=== PATIENT | female | born 2005 | race Caucasian/White ===

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

== ENCOUNTER 2023-05-21 15:01 | Emergency (ER) | payer OTHER ==
[2023-05-21 15:12] VITALS: BP 145/79; PULSE 91
[2023-05-21] MEDS ORDERED: Ketorolac 30 MG/ML SDV IM ONE (15:20)
[2023-05-21] MEDS ORDERED: HYDROmorphone 1 MG/ML Syringe SUBCUT ONE (15:20)
== END 2023-05-21 16:14 | disposition home or self-care (01) ==
LOC: VM.ED 15:01
DX: G89.18 Other acute postprocedural pain (principal); M54.50 Low back pain, unspecified
CPT/HCPCS: 96372; 99283; J1170

== ENCOUNTER 2023-07-01 21:24 | Emergency (ER) | payer OTHER, BC ==
[2023-07-01] MEDS: Dexamethasone 4 MG/ML SDV IM ONE (21:54)
[2023-07-01] MEDS: Ketorolac 30 MG/ML SDV IM ONE (21:55)
[2023-07-01] MEDS: Cyclobenzaprine 10 MG Tab PO ONE (22:07)
[2023-07-01 22:11] VITALS: PULSE 118
[2023-07-01 22:19] VITALS: BP 149/89
== END 2023-07-01 22:30 | disposition home or self-care (01) ==
LOC: VM.ED 21:24
DX: M54.50 Low back pain, unspecified (principal); M62.830 Muscle spasm of back; R51.9 Headache, unspecified; E03.9 Hypothyroidism, unspecified; Z88.0 Allergy status to penicillin; Z79.899 Other long term (current) drug therapy; V49.10XA Passenger injured in collision with unspecified motor vehicles in nontraffic accident, initial encounter; Y92.410 Unspecified street and highway as the place of occurrence of the external cause
CPT/HCPCS: 96372; 99283; A9270-GY; J1100; J1885

== ENCOUNTER 2023-10-05 20:50 | Emergency (ER) | payer OTHER, BC ==
[2023-10-05] MEDS ORDERED: Sodium Chloride 0.9% 10 ML Syringe FLUSH PRN (21:06)
[2023-10-05 21:17] LABS: EOSINOPHILS PERCENT AUTO 0.2 % (0.0-4.0); HEMATOCRIT 41.8 % (33.0-47.0); HEMOGLOBIN 14.2 g/dL (12.0-16.0); LYMPHOCYTES ABSOLUTE AUTO 1.1 x10^3/uL (1.0-4.8); LYMPHOCYTES PERCENT AUTO 20.9 % (25.0-50.0); MEAN CORPUSCULAR HEMOGLOBIN 30.3 pg (26.0-32.0); MEAN CORPUSCULAR VOLUME 89.3 fL (78.0-93.0); MONOCYTES ABSOLUTE AUTO 0.6 x10^3/uL (0.0-0.8); MONOCYTES PERCENT AUTO 12.1 % (2.0-11.0); NEUTROPHILS ABSOLUTE AUTO 3.5 x10^3/uL (1.8-7.7); NEUTROPHILS PERCENT AUTO 66.8 % (50.0-80.0); PLATELET COUNT,PLT 227 x10^3/uL (130-400); RED BLOOD CELL COUNT 4.68 x10^6/uL (4.00-5.50); WHITE BLOOD CELL COUNT,WBC 5.2 x10^3/uL (4.0-10.0)
[2023-10-05] MEDS: Lactated Ringers 1,000 ML IV ONE (21:18)
[2023-10-05] MEDS: Ondansetron 4 MG/2 ML SDV IVPUSH ONE (21:18)
[2023-10-05 21:33] LABS: A/G RATIO 1.19; ALANINE AMINOTRANSFERASE,ALT 39 U/L (14-59); ALBUMIN 3.8 g/dL (3.4-5.0); ALKALINE PHOSPHATASE 69 U/L (46-116); AMYLASE 41 U/L (25-115); ASPARTATE AMNIOTRANSFERASE,AST 21 U/L (15-37); BILIRUBIN TOTAL 0.4 mg/dL (0.2-1.0); BLOOD UREA NITROGEN,BUN 9 mg/dL (7-18); C-REACTIVE PROTEIN 0.57 mg/dL (<=0.50); CALCIUM 8.4 mg/dL (8.5-10.1); CARBON DIOXIDE,CO2 23 mmol/L (21-32); CHLORIDE,CL 106 mmol/L (98-107); CREATININE 0.6 mg/dL (0.55-1.02); GLUCOSE RANDOM 102 mg/dL (70-99); LIPASE 30 U/L (19-71); MAGNESIUM 1.7 mg/dL (1.8-2.4); POTASSIUM,K 3.7 mmol/L (3.5-5.1); SODIUM,NA 141 mmol/L (136-145)
[2023-10-05 21:35] LABS: ANION GAP 15.7 mmol/L (5-15); ESTIMATED GFR 132 mL/min (>=60)
[2023-10-05 22:01] LABS: BILIRUBIN,URINE SMALL (NEGATIVE); COLOR,URINE DARK YELLOW (YELLOW); GLUCOSE,URINE NEGATIVE (NEGATIVE); KETONES,URINE NEGATIVE (NEGATIVE); LEUKOCYTE ESTERASE,URINE NEGATIVE (NEGATIVE); NITRITE,URINE NEGATIVE (NEGATIVE); OCCULT BLOOD,URINE TRACE-LYSED (NEGATIVE); PH,URINE 6.5 (5.0-8.0); PROTEIN,URINE TRACE mg/dL (NEGATIVE)
[2023-10-05] MEDS: Magnesium Sulfate/Water 2 GM in Premix Bag 1 BAG IV ONE (22:02)
[2023-10-05] MEDS: Sodium Chloride 0.9% 1,000 ML IV ONE (22:03)
[2023-10-05 22:08] LABS: APPEARANCE,URINE CLOUDY (CLEAR)
[2023-10-05 22:09] LABS: BACTERIA,URINE OCCASIONAL /HPF (NOT SEEN); MUCUS,URINE MANY /LPF (NOT SEEN); RBC,URINE 0-5 /HPF (NOT SEEN); SQUAMOUS EPITHELIAL CELLS,UR MODERATE /HPF (NOT SEEN); WBC,URINE 0-5 /HPF (NOT SEEN)
[2023-10-05 23:59] VITALS: BP 133/77; PULSE 72
[2023-10-06] MEDS: Take Home: Ondansetron 4 MG Tab.DIS, 5 Tab Pack PO ONE (00:11)
== END 2023-10-06 00:25 | disposition home or self-care (01) ==
LOC: VM.ED 20:50
DX: K52.9 Noninfective gastroenteritis and colitis, unspecified (principal); E83.42 Hypomagnesemia; E03.9 Hypothyroidism, unspecified; Z88.0 Allergy status to penicillin; Z88.8 Allergy status to other drugs, medicaments and biological substances; Z79.899 Other long term (current) drug therapy
CPT/HCPCS: 80053; 81001; 81025; 82150; 83690; 83735; 85025; 86140; 96361; 96365; 96366; 96375; 99284-25; J2405; J3475; J7030; J7120; Q0162

== ENCOUNTER 2025-09-22 07:13 | Emergency (ER) | payer BC, OTHER ==
[2025-09-22 07:24] VITALS: BP 161/91; PULSE 116
[2025-09-22] MEDS ORDERED: Ketorolac 30 MG/ML SDV IVPUSH ONE (07:25)
[2025-09-22] MEDS: Ketorolac 30 MG/ML SDV IM ONE (07:37)
[2025-09-22] MEDS: diphenhydrAMINE 50 MG/ML SDV IM ONE (07:37)
== END 2025-09-22 08:41 | disposition home or self-care (01) ==
LOC: VM.ED 07:13
DX: J01.10 Acute frontal sinusitis, unspecified (principal); J06.9 Acute upper respiratory infection, unspecified; Z88.0 Allergy status to penicillin; Z88.8 Allergy status to other drugs, medicaments and biological substances; Z79.899 Other long term (current) drug therapy
CPT/HCPCS: 96372; 99283; A9270; J1200; J1885